=== PATIENT | female | born 1965 | race Caucasian/White ===

== ENCOUNTER → 2017-01-05 | Day surgery (SDC) | payer BC ==
[~2017-01-05] MED LIST: BENTYL10 MG PO; PHENTERMINE H37.5 M1 PO; VITAMIN D2000 UNIT PO; ZOFRAN ODT4 M1; [UNRECOGNIZED DRUG - REMARK] PO
--- NOTE | ~2017-01-05 | OR ---
Unit #: [id number] #: [id number] Patient: CARTACHITA TINOCO [id number] [address] [address] [id number] MR#: [id number] NAME: CATRACHITA TINOCO ROOM: Date of Procedure: 01/05/2017 Admission Date: 01/05/2017 Surgeon: Arun Johnston M.D. : 1965 Attending Physician: Arun Johnston M.D. Primary Care Physician: Kandi Ware M.D. OPERATIVE REPORT PREOPERATIVE DIAGNOSIS Chronic cholecystitis. POSTOPERATIVE DIAGNOSIS Chronic cholecystitis. PROCEDURE PERFORMED Laparoscopic cholecystectomy. ANESTHESIA General endotracheal anesthesia. ESTIMATED BLOOD LOSS Less than 20 mL. INDICATIONS FOR PROCEDURE A 51-year-old female, who has been having episodic nausea and epigastric and right upper quadrant pain that has been increasing. HIDA scan showed an obstructed cystic duct. DESCRIPTION OF PROCEDURE The patient was admitted to [facility], positively identified, and transported to the operating room, and after induction of general endotracheal anesthesia, she was prepped and draped in usual sterile fashion. She received antibiotics per SCIP protocol. A 5-mm infraumbilical incision was made. Veress needle was placed. Pneumoperitoneum was created. Then, a 5-mm trocar was placed. Laparoscope was introduced into peritoneal cavity. Under direct vision, the epigastric and lateral ports were placed. Gallbladder was grasped and elevated. I dissected out the triangle of Calot, clearly identifying the cystic duct, gallbladder, and cystic duct-common duct junction and the posteriorly placed cystic artery. I swept the cystic duct upwards toward the gallbladder and then placed a clip on the cystic duct as it entered the gallbladder. Three clips were placed distally and the cystic duct sharply divided. Posteriorly, the cystic artery was doubly clipped and divided. I then dissected the gallbladder liver bed using cautery dissection. Once it was freed up from its hepatic attachments, it was brought out through the epigastric port. There was good hemostasis. The clips were well positioned. The epigastric fascial defect was closed with the neoClose device and the closure was airtight. I then reduced the pneumoperitoneum as I removed laparoscope and trocars. 0.5% Marcaine with epinephrine was infiltrated in each trocar site. The skin was closed with Unit #: [id number] #: [id number] Patient: CATRACHITA TINOCO 4-0 Monocryl subcuticular closure and Dermabond skin adhesive. Findings and postoperative instructions were discussed with the patient's family. Dictated by... Laila Bryant/pino TD: 01/05/2017 16:11 JOB #: [id number] OPERATIVE REPORT Page 1 of 1 X Arun Johnston MD X PROCEDURE OPERATIVE NOTE
[2017-01-05 11:44] LABS: HEMATOCRIT 39.5 % (35.0-45.0); HEMOGLOBIN 13.4 gm/dL (12.0-16.0); MEAN CELL VOLUME 92.9 FL (83-96); MEAN CORPUSCULAR HEMOGLOBIN 31.5 PG (28-34); MEAN CORPUSCULAR HGB CONC 33.9 g/dL (30-36); MEAN PLATELET VOLUME 7.6 FL (6.5-11.5); RED BLOOD COUNT 4.26 X10e (3.90-5.30); RED CELL DISTRIBUTION WIDTH 12.7 % (11.0-15.5); WHITE BLOOD COUNT 8.6 X10e3 (4.0-10.5)
[2017-01-05 12:14] LABS: ALBUMIN SERUM 3.8 g/dL (3.5-5.0); BILIRUBIN,TOTAL 0.1 mg/dL (0.2-2.0); BUN/CREATININE RATIO 16.25; CALCIUM SERUM 8.2 mg/dL (8.4-10.2); CREATININE SERUM 0.8 mg/dL (0.6-1.4); GLOM FILT RATE Estimated 84.2 mL/min (>60)
== END | disposition home or self-care (01) ==
LOC: CSUR 10:58
PROVIDERS: Specialist
DX: K80.12 Calculus of gallbladder with acute and chronic cholecystitis without obstruction (principal); Z88.1 Allergy status to other antibiotic agents; Z98.890 Other specified postprocedural states
CPT/HCPCS: 80053; 82947; 84703; 85027; 88304; J0330; J0690; J1100; J1170; J1885; J2175; J2250; J2405; J2710; J3010